=== PATIENT | male | born 1955 | race Two or more races ===

== ENCOUNTER 2017-06-29 12:16 | Outpatient (CLI) | payer OTHER ==
[~2017-06-29 12:16] MED LIST: ALLOPURINOL100 MG PO; ASA325 M1 PO; AVALIDE 150-12.1 TA1; AVALIDE 150-12.1 TA1 PO; CRESTOR5 MG PO
== END 2017-06-29 16:53 | disposition home or self-care (01) ==
LOC: RAD 12:16
DX: M25.512 Pain in left shoulder (principal); M75.112 Incomplete rotator cuff tear or rupture of left shoulder, not specified as traumatic

== ENCOUNTER 2017-06-29 12:22 | Outpatient (CLI) | payer OTHER | END 2017-06-29 16:53 | disposition home or self-care (01) | LOC: SONOGRAMA 12:22 | DX: M25.512 Pain in left shoulder (principal); M75.112 Incomplete rotator cuff tear or rupture of left shoulder, not specified as traumatic ==

== ENCOUNTER 2020-03-21 15:26 | Emergency (ER) | payer OTHER ==
[~2020-03-21] VITALS: Ht 175.3 cm; Wt 78.9 kg
== END 2020-03-21 18:30 | disposition home or self-care (01) ==
LOC: ER 15:26
DX: M54.2 Cervicalgia (principal)

== ENCOUNTER 2020-12-02 06:20 | Emergency (ER) | payer OTHER ==
[~2020-12-02] VITALS: Ht 175.3 cm; Wt 77.1 kg
[2020-12-02] MEDS ORDERED: ACID REDUCER20 M1 PO (08:16)
[2020-12-02] MEDS ORDERED: PEPCID AC20 MG PO (08:16)
== END 2020-12-02 08:30 | disposition home or self-care (01) ==
LOC: ER 06:20
DX: K21.9 Gastro-esophageal reflux disease without esophagitis (principal)

== ENCOUNTER 2020-12-18 09:03 | Outpatient (CLI) | payer OTHER ==
[~2020-12-18 09:03] MED LIST changes: +ACID REDUCER20 M1 PO; +PEPCID AC20 MG PO
== END 2020-12-18 09:08 | disposition home or self-care (01) ==
LOC: RAD 09:03
PROVIDERS: ATTEND Neuromusculoskeletal Medicine, Sports Medicine
DX: M25.561 Pain in right knee (principal); M25.572 Pain in left ankle and joints of left foot